=== PATIENT | male | born 1980 | race Caucasian/White ===

== ENCOUNTER 2017-11-15 15:04 | Emergency (ER) | payer OTHER ==
[~2017-11-15] VITALS: Ht 157.5 cm; Wt 136.1 kg
[2017-11-15] MEDS ORDERED: IBUPROFEN 800800 M1 PO (15:49)
[2017-11-15] MEDS ORDERED: MEDROLDOSEPACK PO (15:49)
[2017-11-15] MEDS ORDERED: ROBAXIN 750 MG750 M1 PO (15:49)
[2017-11-15 15:59] VITALS: BP 118/83
== END 2017-11-15 15:59 | disposition home or self-care (01) ==
LOC: M.ERS 15:04
DX: M54.16 Radiculopathy, lumbar region (principal)

== ENCOUNTER 2017-11-24 09:54 | Emergency (ER) | payer OTHER ==
[~2017-11-24] VITALS: Ht 188 cm; Wt 131.5 kg
[~2017-11-24 09:54] MED LIST: IBUPROFEN 800800 M1 PO; MEDROLDOSEPACK PO; ROBAXIN 750 MG750 M1 PO
[2017-11-24] MEDS ORDERED: FLEXERIL PO (10:42)
[2017-11-24] MEDS ORDERED: ULTRAM 50MG TAB50 MG PO (10:42)
[2017-11-24 10:53] VITALS: BP 150/89
== END 2017-11-24 10:53 | disposition home or self-care (01) ==
LOC: M.ERS 09:54
DX: M54.5 Low back pain (principal)